=== PATIENT | male | born 1990 | race Two or more races ===

== ENCOUNTER 2018-11-30 22:49 | Emergency (ER) | payer MEDICAID, OTHER ==
[~2018-11-30] VITALS: Ht 170.2 cm; Wt 70.3 kg
[2018-11-30] MEDS ORDERED: TDAP [DIPH/PERTUSSIS/TET] 0.5 ML VIAL IM ONE ×2 (23:00→23:02)
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
--- NOTE | 2018-11-30 23:05 | NUR ---
PARENTS AT BEDSIDE
--- NOTE | 2018-11-30 23:08 | NUR ---
PT TAKEN TO RADIOLOGY VIA [facility]
--- NOTE | 2018-11-30 23:16 | NUR ---
PT RETURNED FROM RADIOLOGY
[2018-11-30] MEDS ORDERED: MORPHINE SULFATE INJ 4 MG/ML DISP.SYRIN ONE (23:41)
--- NOTE | 2018-11-30 23:45 | NUR ---
RADIOLOGY AT BEDSIDE FOR XRAY
[2018-11-30] MEDS ORDERED: LIDOCAINE 1%-EPI 1:100,000 20 ML VIAL ONE (23:50)
[2018-12-01] MEDS ORDERED: MORPHINE SULFATE INJ 2 MG/ML DISP.SYRIN IM ONE
[2018-12-01 00:01] VITALS: BP 110/70
[2018-12-01] MEDS ORDERED: AMOX/CLAVULANATE 875 MG TABLET PO ONE (01:00)
[2018-12-01] MEDS ORDERED: AMOX/CLAVULANATE 875 MG TABLET ONE (01:18)
--- NOTE | 2018-12-01 02:21 | NUR ---
Patient discharged to home in stable condition. Written and verbal after care instructions given. Patient verbalizes understanding of instruction. PT AMBULATORY WITH STEADY GAIT ACCOMPANIED BY PARENTS.
== END 2018-12-01 02:25 | disposition home or self-care (01) ==
LOC: ER 22:50
DX: S02.19XB Other fracture of base of skull, initial encounter for open fracture (principal); S70.02XA Contusion of left hip, initial encounter; S80.212A Abrasion, left knee, initial encounter; S80.211A Abrasion, right knee, initial encounter; S09.8XXA Other specified injuries of head, initial encounter; Z88.6 Allergy status to analgesic agent; V49.59XA Passenger injured in collision with other motor vehicles in traffic accident, initial encounter; Y93.89 Activity, other specified; Y92.488 Other paved roadways as the place of occurrence of the external cause; Y99.8 Other external cause status
CPT/HCPCS: 12014; 70450; 70486; 73501; 73564 ×2; 90471; 90715; 96372; 99284; J2270; J3490; 73020

== ENCOUNTER 2018-12-15 13:49 | Emergency (ER) | payer MEDICAID ==
[~2018-12-15] VITALS: Ht 170.2 cm; Wt 68.0 kg
[2018-12-15 14:19] VITALS: BP 111/64
== END 2018-12-15 15:02 | disposition home or self-care (01) ==
LOC: ER 13:50
DX: S01.81XD Laceration without foreign body of other part of head, subsequent encounter (principal); Z88.6 Allergy status to analgesic agent; V49.49XD Driver injured in collision with other motor vehicles in traffic accident, subsequent encounter